=== PATIENT | female | born 2000 | race Caucasian/White ===

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

== ENCOUNTER 2019-02-18 12:11 | Outpatient (REF) | payer OTHER, SELFPAY | END 2019-02-18 12:31 | LOC: LBN 12:11 | PROVIDERS: PCP Pediatrics; Visit Provider Nurse Practitioner Family | DX: R30.0 Dysuria (principal) | CPT/HCPCS: 87077; 87086; 87186 ==

== ENCOUNTER 2020-01-04 08:30 | Outpatient (CLI) | payer OTHER, SELFPAY ==
[2020-01-05 02:51] LABS: COVID-19 RT-PCR UVMMC Result Negative (Negative)
== END 2020-01-04 08:50 ==
PROVIDERS: PCP Pediatrics; Visit Provider Pediatrics
DX: R50.9 Fever, unspecified (principal)
CPT/HCPCS: U0003

== ENCOUNTER 2020-01-18 21:53 | Outpatient (REF) | payer OTHER, SELFPAY ==
[2020-01-21 13:54] LABS: Chlamydia Result Negative (Negative); GC Result Negative (Negative)
== END 2020-01-18 22:13 ==
LOC: LBN 21:53
PROVIDERS: PCP Pediatrics; Visit Provider Nurse Practitioner Family
DX: Z11.3 Encounter for screening for infections with a predominantly sexual mode of transmission (principal)
CPT/HCPCS: 87491; 87591

== ENCOUNTER 2020-02-28 07:26 | Outpatient (CLI) | payer OTHER, SELFPAY ==
[2020-03-01 21:34] LABS: SARS-CoV-2 RNA Undetected (Undetected); SARS-CoV-2 Specimen Source Nasopharynx
== END 2020-02-28 07:46 ==
PROVIDERS: PCP Pediatrics; Visit Provider Pediatrics
DX: Z11.59 Encounter for screening for other viral diseases (principal)
CPT/HCPCS: U0003

== ENCOUNTER 2020-05-19 03:30 | Outpatient (CLI) | payer OTHER, SELFPAY ==
[2020-05-23 19:04] LABS: Patient Race White; SARS-CoV-2 RNA Undetected (Undetected); SARS-CoV-2 Specimen Source Nasal
== END 2020-05-19 03:50 ==
PROVIDERS: PCP Pediatrics; Visit Provider Pediatrics
DX: Z11.59 Encounter for screening for other viral diseases (principal)
CPT/HCPCS: U0003

== ENCOUNTER 2021-03-16 11:22 | Outpatient (REF) | payer OTHER, SELFPAY ==
--- NOTE | 2021-03-16 10:15 | PAPFT_PTH ---
PATIENT: Manuel Malone LOC: [facility] U#:[id number] AGE/SX: 20/F ROOM: RE03/16/[address]: JOSE MARIA Lehman : 2000 BED: DIS: 03/16/2021 SPEC #: [id number] RECD: 03/16/21 11:33 STATUS: TERESSA REQ #: [id number] PAULO: 03/16/21 10:[address]: Suzanne Bee DEPT: [facility] Cytology RECD BY: Macey Brizuela ENTERED: 03/16/21 11:33 SP TYPE: PAPFT OTHR DR: Inna Dallas DO Tissues: 1 - CX/ENDOCX FOR PAP SMEARS Procedures: PAP THIN PREP/[facility] Screening Comments: [id number]
[2021-03-19 14:41] LABS: Chlamydia Result Negative (Negative); GC Result Negative (Negative)
== END 2021-03-16 11:23 | disposition home or self-care (01) ==
LOC: LBN 11:22
PROVIDERS: PCP Pediatrics; Visit Provider Nurse Practitioner Family
DX: Z11.3 Encounter for screening for infections with a predominantly sexual mode of transmission (principal); Z12.4 Encounter for screening for malignant neoplasm of cervix; R87.610 Atypical squamous cells of undetermined significance on cytologic smear of cervix (ASC-US)
CPT/HCPCS: 87491; 87591; 88142

== ENCOUNTER 2022-03-19 12:46 | Outpatient (REF) | payer OTHER, SELFPAY ==
--- NOTE | 2022-03-19 10:40 | PAPFT_PTH ---
PATIENT: Manuel Malone LOC: [facility] U#:[id number] AGE/SX: 21/F ROOM: RE03/19/[address]: Nicole Lange MD : 2000 BED: DIS: 03/19/2022 SPEC #: [id number] RECD: 03/19/22 18:13 STATUS: TERESSA REQ #: [id number] PAULO: 03/19/22 10:[address]: Nicole Lange DEPT: [facility] Cytology RECD BY: Marycruz Butler ENTERED: 03/19/22 18:14 SP TYPE: PAPFT OTHR DR: Inna Dallas, DO Tissues: 1 - CX/ENDOCX FOR PAP SMEARS Procedures: PAP THIN PREP/[facility] Screening Comments: [id number] (CHLAMYDIA/GC)
[2022-03-20 15:39] LABS: Chlamydia Result Negative (Negative); GC Result Negative (Negative)
== END 2022-03-19 12:47 | disposition home or self-care (01) ==
LOC: LBN 12:46
PROVIDERS: PCP Pediatrics; Visit Provider Obstetrics & Gynecology
DX: Z11.3 Encounter for screening for infections with a predominantly sexual mode of transmission (principal); Z12.4 Encounter for screening for malignant neoplasm of cervix
CPT/HCPCS: 87491; 87591; 88142

== ENCOUNTER 2025-01-20 02:05 | Outpatient (CLI) | payer BC, SELFPAY ==
[2025-01-20 15:42] LABS: Abs Immature Grans 0.04 10^3/uL (0.0-0.06); HCT 42.6 % (36.0-46.0); HGB 14.4 g/dL (11.2-15.7); Immature Grans % 0.3 %; MCH 29.8 pg (27.0-33.0); MCHC 33.8 % (32.0-36.0); MCV 88 fL (80-95); MPV 9.5 fL (8.0-11.0); Platelet Count 202 10^3/uL (130-400); RBC 4.83 10^6/uL (3.93-5.22); RDW 12.2 % (11.7-14.6); RDW-SD 39.3 fL; WBC 11.82 10^3/uL (4.4-10.8)
[2025-01-20 16:39] LABS: TSH (W/Ref FT4) 0.97 uIU/mL (0.36-3.74)
[2025-01-21 08:21] LABS: Rubella IgG Ab (UVM) Positive (See Note)
[2025-01-21 09:27] LABS: Hepatitis C Ab w Rflx HCV PCR Negative (Negative)
[2025-01-24 19:47] LABS: Syphilis IgG w/Reflex Nonreactive (Nonreactive)
[2025-02-15 12:42] LABS: HIV-1/2 Ag & Ab Screen Negative (Negative)
== END 2025-01-20 02:06 | disposition home or self-care (01) ==
LOC: LBO 02:06
PROVIDERS: PCP Nurse Practitioner Family; Visit Provider Advanced Practice Midwife
DX: Z34.91 Encounter for supervision of normal pregnancy, unspecified, first trimester
CPT/HCPCS: 36415; 81220; 81222; 81329; 86787; 86803; 86850; 86900; 86901; 87340; 87389; 84443; 85025; 86762; 86780

== ENCOUNTER 2025-01-20 15:41 | Outpatient (REF) | payer BC, SELFPAY ==
--- NOTE | 2025-01-20 14:00 | PAPFT_PTH ---
PATIENT: Manuel Malone LOC: [facility] U#:[id number] AGE/SX: 24/F ROOM: RE01/20/[address]: Myla Torres CNM : 2000 BED: DIS: 01/20/2025 SPEC #: [id number] RECD: 01/20/25 18:14 STATUS: TERESSA REQ #: [id number] PAULO: 01/20/25 14:[address]: Myla Torres DEPT: [facility] Cytology RECD BY: Marycruz Butler ENTERED: 01/20/25 18:14 SP TYPE: PAPFT OTHR DR: Caitlin Diallo, VELVET Tissues: 1 - CX/ENDOCX FOR PAP SMEARS Procedures: PAP THIN PREP/[facility] Screening HPV DNA PROBE Comments: [id number] (HPV 16 & 18/45) (CHLAMYDIA/GC)
[2025-01-21 11:53] LABS: Chlamydia Result Negative (Negative); GC Result Negative (Negative)
== END 2025-01-20 15:42 | disposition home or self-care (01) ==
LOC: LBN 15:41
PROVIDERS: PCP Nurse Practitioner Family; Visit Provider Advanced Practice Midwife
DX: Z34.91 Encounter for supervision of normal pregnancy, unspecified, first trimester (principal); Z3A.11 11 weeks gestation of pregnancy
CPT/HCPCS: 87491; 87591; 88142; 87086; 87624

== ENCOUNTER 2025-05-12 03:35 | Outpatient (CLI) | payer BC, SELFPAY ==
[2025-05-12 11:34] LABS: HCT 40.7 % (36.0-46.0); HGB 13.5 g/dL (11.2-15.7); MCH 29.7 pg (27.0-33.0); MCHC 33.2 % (32.0-36.0); MCV 90 fL (80-95); MPV 9.5 fL (8.0-11.0); Platelet Count 201 10^3/uL (130-400); RBC 4.55 10^6/uL (3.93-5.22); RDW 12.5 % (11.7-14.6); RDW-SD 41.2 fL; WBC 12.51 10^3/uL (4.4-10.8)
[2025-05-12 11:51] LABS: Glucose,1 Hr (Glucola) 86 mg/dL (80-140)
== END 2025-05-12 03:36 | disposition home or self-care (01) ==
LOC: LBO 03:35
PROVIDERS: Advanced Practice Midwife; PCP Nurse Practitioner Family; Visit Provider Advanced Practice Midwife
DX: Z34.92 Encounter for supervision of normal pregnancy, unspecified, second trimester (principal)
CPT/HCPCS: 36415; 82950; 85027

== ENCOUNTER 2025-07-11 16:10 | Outpatient (REF) | payer BC, SELFPAY | END 2025-07-11 16:11 | disposition home or self-care (01) | LOC: LBN 16:10 | PROVIDERS: PCP Nurse Practitioner Family; Visit Provider Advanced Practice Midwife | DX: Z34.93 Encounter for supervision of normal pregnancy, unspecified, third trimester (principal) | CPT/HCPCS: 87081 ==